=== PATIENT | male | born 1960 | race Caucasian/White ===

== ENCOUNTER 2022-06-18 15:44 | Emergency (ER) | payer OTHER ==
[2022-06-18 16:15] VITALS: BP 145/94; PULSE 61; RESP 24; TEMP 98.1
[2022-06-18 17:08] LABS: Basophils % (A) 1 %; Eosinophils # (A) 0.2 k/uL (0-0.7); Eosinophils % (A) 2 %; HCT 48.6 % (39.0-53.0); HGB 16.3 gm/dL (13.0-17.5); Lymphocytes # (A) 2.1 k/uL (1.0-4.8); Lymphocytes % (A) 26 %; MCH 34.1 pg (25.0-35.0); MCHC 33.6 g/dL (31.0-37.0); MCV 101.5 fL (80.0-100.0); Mean Platelet Volume 7.2; Monocytes # (A) 0.6 k/uL (0-1.0); Monocytes % (A) 7 %; Neutrophils % (A) 62 %; Platelet Count 334 k/uL (150-450); RBC 4.79 m/uL (4.30-5.90); WBC 8.1 k/uL (3.8-10.6)
[2022-06-18 17:13] LABS: Prothrombin Time 10.5 sec (9.0-12.0)
[2022-06-18 17:31] LABS: ALT 32 U/L (4-49); AST 37 U/L (17-59); African American GFR (CKD) >90 (>60 ml/min/1.73 sqM); Albumin 4.8 g/dL (3.5-5.0); Alkaline Phosphatase 135 U/L (38-126); Anion Gap 16 mmol/L; Blood Urea Nitrogen 13 mg/dL (9-20); Carbon Dioxide 23 mmol/L (22-30); Chloride 102 mmol/L (98-107); Glucose 89 mg/dL (74-99); Non-African American GFR(CKD) >90 (>60 ml/min/1.73 sqM); Potassium 4.2 mmol/L (3.5-5.1); Sodium 141 mmol/L (137-145); Total Bilirubin 0.8 mg/dL (0.2-1.3); Total Protein 7.4 g/dL (6.3-8.2)
--- NOTE | 2022-06-18 17:57 | XR ---
EXAMINATION TYPE: XR chest 2V DATE OF EXAM: 06/18/2022 COMPARISON: 08/31/2017 HISTORY: Shortness of breath TECHNIQUE: Frontal and lateral views of the chest are obtained. FINDINGS: There is no focal air space opacity, pleural effusion, or pneumothorax seen. The cardiac silhouette size is within normal limits. The osseous structures are intact. IMPRESSION: No acute cardiopulmonary process.
--- NOTE | 2022-06-18 20:16 | ED ---
Chest Pain HPI - General Chief Complaint: Chest Pain Stated Complaint: STEVE,Chest pain Time Seen by Provider: 06/18/22 19:58 Source: patient, RN notes reviewed Mode of arrival: ambulatory Limitations: no limitations - History of Present Illness Initial Comments: This patient presented with daily chest pain for the last week. Patient states he seems to be getting chest discomfort after he wakes up whether he is partaking in any activity or not. Patient states it feels like a pain which she is having a hard time characterizing in the center of his chest. He states it lasts about 15 minutes, sometimes up to 45 minutes time he also has a sensation that he is having a hard time getting a breath in. The symptoms resolved and he is completely asymptomatic. Again, he states this seems to be having in the morning. Patient does have a history of gastroesophageal reflux disease. Patient is a cigarette smoker and does have a family history of heart disease in his father at age 55. Patient states his brother and sisters have no cardiac disease. Patient currently asymptomatic. Denying any current chest pain or shortness of breath. No fever or chills. No headache, no fever or chills, no changes in vision or hearing, no sore throat or difficulty with speech, no neck pain,, no abdominal pain, no nausea or vomiting, no changes in urination or bowel movements, no numbness or tingling, no extremity pain, no skin rashes or lesions. Past medical, surgical, social, and family history reviewed. - Related Data Home Medications Medication Instructions Recorded Confirmed Butalb/APAP/Caff 50-325-40Mg 1 tab PO Q12H PRN 08/31/17 08/31/17 [Fioricet 50-325-40] Cyclobenzaprine [Flexeril] 10 mg PO HS 08/31/17 08/31/17 HYDROcodone/APAP 7.5-325MG [[place] 1 tab PO BID PRN 08/31/17 08/31/17 7.5-325] Ibuprofen [Motrin] 800 mg PO Q6H PRN 08/31/17 08/31/17 Omeprazole 20 mg PO W/SUPPER 08/31/17 08/31/17 amLODIPine [Norvasc] 5 mg PO DAILY 08/31/17 08/31/17 Previous Rx's Medication Instructions Recorded Aspirin 81 mg PO DAILY chew 09/01/17 Atorvastatin [Lipitor] 10 mg PO DAILY #30 tab 09/01/17 Allergies Allergy/AdvReac Type Severity Reaction Status Date / Time No Known Allergies Allergy Verified 06/18/22 16:15 Review of Systems ROS Statement: Those systems with pertinent positive or pertinent negative responses have been documented in the HPI. ROS Other: All systems not noted in ROS Statement are negative. EKG Findings - EKG Comments: EKG Findings:: EKG done at 1635 and read by the ED attending physician reveals sinus rhythm with rate of 62. Normal intervals. Normal axis. Normal QRS morphology. No acute ST or T-wave changes. Past Medical History Past Medical History: GERD/Reflux, Hyperlipidemia, Hypertension Additional Past Medical History / Comment(s): Migraines, Raynauld's bilateral hands, chronic low back pain. History of Any Multi-Drug Resistant Organisms: None Reported Past Surgical History: Back Surgery Additional Past Surgical History / Comment(s): Low back surgery, colonoscopy. Past Anesthesia/Blood Transfusion Reactions: No Reported Reaction Past Psychological History: No Psychological Hx Reported Past Alcohol Use History: Daily Past Drug Use History: None Reported - Past Family History Mother Family Medical History: No Reported History Additional Family Medical History / Comment(s): Mother is 89yrs old and very healthy Father Family Medical History: Congestive Heart Failure (CHF) Additional Family Medical History / Comment(s): Father had CABG. He of chf at the age of 55 yrs. Father's brother of a [facility] at the age of 34yrs. General Exam - General Exam Comments Initial Comments: This is a well-developed, well-nourished, male in no acute distress. Patient is asymptomatic. His vital signs reviewed. No distress Limitations: no limitations General appearance: alert, in no apparent distress Head exam: Present: atraumatic, normocephalic, normal inspection Eye exam: Present: normal appearance, PERRL, EOMI. Absent: scleral icterus, conjunctival injection, periorbital swelling ENT exam: Present: normal exam, mucous membranes moist. Absent: normal oropharynx, mucous membranes dry, TM's normal bilaterally, normal external ear exam Neck exam: Present: normal inspection, full ROM. Absent: tenderness, meningismus, lymphadenopathy Respiratory exam: Present: normal lung sounds bilaterally. Absent: respiratory distress, wheezes, rales, rhonchi, stridor Cardiovascular Exam: Present: regular rate, normal rhythm, normal heart sounds. Absent: systolic murmur, diastolic murmur, rubs, gallop, clicks GI/Abdominal exam: Present: soft, normal bowel sounds. Absent: distended, tenderness, guarding, rebound, rigid Extremities exam: Present: normal inspection, full ROM, normal capillary refill. Absent: tenderness, pedal edema, joint swelling, calf tenderness Back exam: Present: normal inspection Neurological exam: Present: alert, oriented X3, CN II-XII intact Psychiatric exam: Present: normal affect, normal mood. Absent: anxious, flat affect Skin exam: Present: warm, dry, intact, normal color. Absent: rash, cyanosis, diaphoretic, erythema, urticaria, vesicles Course Vital Signs 06/18/22 16:11 Temperature 98.1 F Pulse Rate 61 Respiratory 24 Rate Blood Pressure 145/94 O2 Sat by Pulse 100 Oximetry Chest Pain MDM - MDM Given the patient's age, cardiac risk or, smoking status, and family history. I did advise that the patient stayed in the hospital for chest pain rule out. Patient states he would like to leave. Patient states he is asymptomatic and ready to go home. Again, adamantly advised that the patient stay. Patient refusing admission. Patient is pleasant, lucid, alert and oriented 4, able to make his own medical decisions. We did discuss risks versus benefits. Patient states he is willing to take the risk and he knows Leandra chance this is cardiac related. Does not appear to be consistent with pulmonary embolism or infectious etiology. Again, patient currently asymptomatic The case was discussed in detail with ED attending physician. Presentation, findings, treatment plan discussed in detail. Patient had a nondiagnostic EKG and a negative troponin here. Certainly this could be related to acid reflux. I'm going to have the patient elevate the head of his bed and follow-up with his regular physician. We'll have him continue his proton pump inhibitor. I did tell him to add in a daily aspirin. We also talked about smoking cessation in excess of 3 minutes. Patient states he knows that he needs to quit. Supervising physicians Dr. Fuller Disposition Clinical Impression: Chest pain, Acid reflux Disposition: HOME SELF-CARE Condition: Stable Instructions (If sedation given, give patient instructions): Chest Pain (ED), GERD (Gastroesophageal Reflux Disease) (ED) Additional Instructions: Follow-up with your regular physician as directed. Return to the ER immediately if any symptoms worsen, new symptoms arise, or any other problems develop. Continue Prilosec, take a daily aspirin, 325 mg. Is patient prescribed a controlled substance at d/c from ED?: No Referrals: Heath Hernadez [Primary Care Provider] - As Soon As Possible Time of Disposition: 20:13
== END 2022-06-18 20:26 | disposition home or self-care (01) ==
LOC: EC 15:44
DX: K21.9 Gastro-esophageal reflux disease without esophagitis (principal); I10 Essential (primary) hypertension; E78.5 Hyperlipidemia, unspecified; F17.200 Nicotine dependence, unspecified, uncomplicated; Z79.899 Other long term (current) drug therapy
CPT/HCPCS: 36415; 71046; 80053; 84484; 85025; 85610; 93005; 99285

== ENCOUNTER → 2024-08-23 | Outpatient (CLI) | payer MEDICARE ==
--- NOTE | 2024-08-23 14:46 | CT ---
EXAMINATION TYPE: CT chest wo con CT DLP: 253.7 mGycm, Automated exposure control for dose reduction was used. DATE OF EXAM: 08/23/2024 2:27 PM COMPARISON: Chest radiograph 06/18/2022 CLINICAL INDICATION:Male, 64 years old with history of PULMONARY NODULE, RIGHT R91.1; PHH, pulmonary nodule TECHNIQUE: Multiple axial images were obtained through the chest without IV contrast. Lack of IV or o ral contrast limits evaluation of solid and hollow organ viscera. . Coronal and sagittal reformats re viewed. FINDINGS: LUNGS/ PLEURA: Normal biapical pleural-parenchymal scarring. No pleural effusion, pneumothorax, focal consolidation. Right mid lung peripheral pleural-based 4 mm pulmonary nodule (series 4, image 42). AIRWAY: Patent and unremarkable.. HEART: Size within normal limits.No pericardial effusion. Small coronary artery calcifications. MEDIASTINUM: No gross evidence of adenopathy. VASCULATURE: No aortic aneurysm. Mild atherosclerotic calcification of the aorta and its branches. MUSCULOSKELETAL: Mild disc degeneration changes are present throughout the thoracolumbar spine. No ac ashley osseous abnormality. SOFT TISSUES/LYMPH NODES: Unremarkable. LOWER NECK: No significant findings. UPPER ABDOMEN: Region of low attenuation within the liver adjacent to the psoas are only well likely representing focal fatty infiltration. Nonobstructive right renal calculus measuring up to 1.3 cm. IMPRESSION: 1. No acute thoracic process. 2. Peripheral right mid lung 4 mm pulmonary nodule. In a low-risk patient, no follow-up is recommende d. In a high-risk patient consider optional CT chest in 12 months. 3. Nonobstructive right renal calculus. [facility], , 08/23/2024 2:44 PM
== END | disposition home or self-care (01) ==
LOC: RADCTMAIN 13:56
PROVIDERS: ATTEND Student in an Organized Health Care Education/Training Program
DX: R91.1 Solitary pulmonary nodule (principal); N20.0 Calculus of kidney; I70.0 Atherosclerosis of aorta
CPT/HCPCS: 71250